=== PATIENT | male | born 1960 | race Caucasian/White ===

== ENCOUNTER 2018-03-05 07:21 | Emergency (ER) | payer BC ==
[2018-03-05 07:53] VITALS: BP 137/80
--- NOTE | 2018-03-05 08:15 | UC ---
Throat Pain/Nasal Cullen HPI - HPI Summary HPI Summary: Patient presents emergency Department with 2 weeks of progressive sinus congestion cough. Patient states he's been taking Sudafed and Tylenol without relief. Patient states now is got right facial pain. Mild right ear pain. Patient with postnasal drip. Patient states he is coughing up the same green stuff is coming out of his nose. No body aches. No nausea vomiting. No document a fever. Patient's been eating and drinking okay. Patient states is just not getting better so he decided to come. Patient does not smoke. Patient 's medications were reviewed this visit - History of Current Complaint Chief Complaint: UCRespiratory Stated Complaint: SINUSES Time Seen by Provider: 03/05/18 08:11 Hx Obtained From: Patient Pain Intensity: 0 - Allergies/Home Medications Allergies/Adverse Reactions: Allergies Allergy/AdvReac Type Severity Reaction Status Date / Time No Known Allergies Allergy Verified 03/05/18 07:42 Home Medications: Home Medications Cholesterol Med, ? Name 1 tab PO DAILY 03/05/18 [History] Omeprazole CAP* [Prilosec CAP* 20 MG] 40 mg PO DAILY 03/05/18 [History Confirmed 03/05/18] Pseudoephedrine HCL ER TAB* [Sudafed 12 Hour*] 1 tab PO BID PRN 03/05/18 [ History Confirmed 03/05/18] PMH/Surg Hx/FS Hx/Imm Hx Previously Healthy: Yes - Surgical History Surgical History: Yes Surgery Procedure, Year, and Place: Shoulder surgery (left)- 3 years ago - Family History Known Family History: Positive: Other - non contributory - Social History Occupation: Employed Full-time Lives: With Family Alcohol Use: Occasionally Substance Use Type: None Smoking Status (MU): Former Smoker When Did the Patient Quit Smoking/Using Tobacco: 2016 Review of Systems Constitutional: Fatigue ENT: Sore Throat, Nasal Discharge, Sinus Congestion, Sinus Pain/Tenderness All Other Systems Reviewed And Are Negative: Yes Physical Exam - Summary Physical Exam Summary: Vital Signs Reviewed: Yes A+Ox3, no distress Eyes: Conjunctiva Clear, GODWIN. EOM intact and full ENT: Hearing grossly normal TM x 2 clear, turbinates inflammed and boggy, thick pnd, max sinus TTP mmoist, uvula midline, no exudate, no erythema Neck: Positive: Supple Respiratory: Positive: No respiratory distress, No accessory muscle use + CTA throughout no w/r Cardiovascular: RRR nl s1, s2 no m/r CBT <2 sec abd soft + BS nt/nd no guarding, no distension Musculoskeletal Exam: ZAMARRIPA x 4 without difficulty Strength Intact, ROM Intact Neurological: Positive: Alert, + sensation throughout Psychological: Positive: Normal Response To Family Skin: Positive: no rash, no ecchymosis Triage Information Reviewed: Yes Vital Signs: Initial Vital Signs Pulse 57 03/05/18 07:45 Resp 16 03/05/18 07:45 BP 137/80 03/05/18 07:45 Pulse Ox 97 03/05/18 07:45 Throat Pain/Nasal Course/Dx - Course Course Of Treatment: Pt with 2 weeks progessive nasal congestion, pnd. Pt now with sinus pressure. vss. exam c/w sinusitis. abx. hydrate. motrin/apap. flonase. return rpecaution. secretion precuation - Differential Dx/Diagnosis Provider Diagnoses: sinusitis Discharge - Sign-Out/Discharge Documenting (check all that apply): Patient Departure All imaging exams completed and their final reports reviewed: No Studies - Discharge Plan Condition: Stable Disposition: HOME Prescriptions: Amoxicillin PO (*) [Amoxicillin 500 MG CAP*] 500 mg PO Q12H #20 cap Fluticasone NASAL SPRAY 50MCG* [Flonase NASAL SPRAY 50MCG*] 2 spray BOTH NARES DAILY #1 btl Patient Education Materials: Rhinosinusitis (ED) Referrals: Edward Humphreys PA [Primary Care Provider] - Additional Instructions: - Stay well hydrated. Drink plenty of non-alcoholic, non-caffinated beverages. - Alternate ibuprofen (Advil, Motrin) 600mg and Tylenol every 3 hours for pain or fever. Take with food. Do NOT take for more than 4-5 days. - These infections are spread by secretions - do NOT share eating or drinking utensils - clean items you share with other people such as cell phones, computer mouse, TV remote, computer tablets,etc. Once you have been antibiotics for 2 days, change your toothbrush and your pillowcase. - get plenty of restful sleep - humidify the air in the room where you sleep - boil water, run a hot steam shower, vaporizer, cups of water by heat register - okay to take over the counter decongestant and cough medication - use nasal spray as prescribed - contact your doctor or return with questions or concerns - Billing Disposition and Condition Condition: STABLE Disposition: Home
== END 2018-03-05 08:26 | disposition home or self-care (01) ==
LOC: UCCORT 07:21
DX: J32.9 Chronic sinusitis, unspecified (principal); Z87.891 Personal history of nicotine dependence
CPT/HCPCS: 99212; G0463

== ENCOUNTER 2018-10-16 13:28 | Emergency (ER) | payer BC ==
--- NOTE | 2018-10-16 13:56 | UC ---
Throat Pain/Nasal Cullen HPI - HPI Summary HPI Summary: 58 y/o male presents to the urgent care c/o sinus congestion, pain , REDDY, B?L ear pressure and green nasal discharge for the past 5 week. Symptoms have worsen this past week. He feels mild dry cough and chest feels congested. Moderate green PND. Yesterday he developed subjective fever at home. He has take OTC medication to alleviate symptoms. RT ear pressure, mild pain and decrease hearing. Pain is 4/10. Pt denies dizziness, SOB, chest pain, abdominal pain, N/V/D. - History of Current Complaint Stated Complaint: SINUS COMPLAINT Time Seen by Provider: 10/16/18 13:55 Hx Obtained From: Patient Onset/Duration: Gradual Onset, Lasting Weeks - 5 weeks, Still Present, Worse Since - 1 week Severity: Moderate Pain Intensity: 4 - sinus pain Pain Scale Used: 0-10 Numeric Cough: Nonproductive - dry Associated Signs & Symptoms: Positive: Sinus Discomfort, Nasal Discharge, Fever - subjective fever at home yesterday. Negative: Wheezing - Epiglottits Risk Factors Epiglottis Risk Factors: Negative - Allergies/Home Medications Allergies/Adverse Reactions: Allergies Allergy/AdvReac Type Severity Reaction Status Date / Time No Known Allergies Allergy Verified 10/16/18 14:02 PMH/Surg Hx/FS Hx/Imm Hx Previously Healthy: Yes GI/ History: Gastroesophageal Reflux - Surgical History Surgical History: Yes Surgery Procedure, Year, and Place: Shoulder surgery (left)- 3 years ago - Family History Known Family History: Positive: None - Pt deneis FMHX - Social History Occupation: Employed Full-time Lives: With Family Alcohol Use: Occasionally Substance Use Type: None Smoking Status (MU): Former Smoker When Did the Patient Quit Smoking/Using Tobacco: 2016 Review of Systems All Other Systems Reviewed And Are Negative: Yes Constitutional: Positive: Fever - subjective at home yesterday, Chills Skin: Positive: Negative Eyes: Positive: Negative ENT: Positive: Ear Ache - B/L ear pressure, Nasal Discharge - green, Sinus Congestion, Sinus Pain/Tenderness, Other - moderate gren PND Respiratory: Positive: Cough - dry Cardiovascular: Positive: Negative Gastrointestinal: Positive: Negative Genitourinary: Positive: Negative Motor: Positive: Negative Neurovascular: Positive: Negative Musculoskeletal: Positive: Myalgia Neurological: Positive: Headache Psychological: Positive: Negative Is Patient Immunocompromised?: No Physical Exam - Summary Physical Exam Summary: Vitals: reviewed General: Well developed, well-nourished male patient with NAD. Head and face: Normocephalic and atraumatic, Positive tenderness over the frontal and maxillary sinuses.. Eyes: PERRLA, EOMI x 2. Normal conjunctiva. No eye discharge. ENT: RT external ear canal impacted w/ cerumen unable to visualize TM, LF external ear canal clear, LF TM WNL. Nose: edematous and erythematous nasal mucosa with with yellowish discharge and erythematous mucosa. Pharynx with erythema, no exudate. Moderate green PND Neck: Supple, no JVD, no carotid bruits and no lymphadenopathy. Lungs: clear, no rales, no rhonchi, no wheezes. CVS: RRR, S1 and S2 present no murmurs or gallops appreciated. Abdomen: soft nontender with positive bowel sounds. Extremities: no edema noted. Neuro: WNL. Skin: warm and dry Triage Information Reviewed: Yes Throat Pain/Nasal Course/Dx - Course Course Of Treatment: 58 y/o male presents to the urgent care c/o sinus congestion, pain , REDDY, B?L ear pressure and green nasal discharge for the past 5 week. Symptoms have worsen this past week. He feels mild dry cough and chest feels congested. Moderate green PND. Yesterday he developed subjective fever at home. He has take OTC medication to alleviate symptoms. RT ear pressure, mild pain and decrease hearing. Pain is 4/10. Pt denies dizziness, SOB, chest pain, abdominal pain, N/V/D. Hx obtained. Pt with 5 weeks of symptoms getting worse. Pt w/ acute bacterial sinusitis and RT external ear canal impacted w/ cerumen unable to visualize TM on examination. RT ear irrigation ordered and performed by nurse. Moderated cerumen removed even w/ ear speculum, but cerumen still present. Pt Rx Amoxicillin PO and flonase nasal spray and Debrox otic drops to allevite symptoms. Also Advised to take Ibuprofen PO to alleviate symptoms. Discharge instructions explained to Pt. Advised to Return to the clinic or PCP if symptoms do not improve.Pt's BP is elevated today advised to decrease salt in diet, monitor BP and f/u with PCP for further management. Pt understood and agreed with plan of care. - Differential Dx/Diagnosis Differential Diagnosis/HQI/PQRI: Laryngitis, Otitis Media, Pharyngitis, Sinusitis, Tonsillitis, URI Provider Diagnosis: Acute bacterial sinusitis, Impacted cerumen of right ear, Elevated BP without diagnosis of hypertension Discharge - Sign-Out/Discharge Documenting (check all that apply): Patient Departure - D/C home All imaging exams completed and their final reports reviewed: No Studies - Discharge Plan Condition: Stable Disposition: HOME Prescriptions: Amoxicillin PO (*) [Amoxicillin 875 MG (*)] 875 mg PO BID #20 tab Carbamide Peroxide 6.5% OTIC* [DEBROX 6.5% Otic*] 5 drop RIGHT EAR BID #1 bottle Fluticasone NASAL SPRAY 50MCG* [Flonase NASAL SPRAY 50MCG*] 2 spray BOTH NARES DAILY #1 btl Patient Education Materials: Sinusitis (ED), Cerumen Impaction (ED) Referrals: Edward Humphreys PA [Primary Care Provider] - 3 Days Additional Instructions: 1- Please increase fluid intake and rest. take full course of antibiotic to avoid resistance 2-Use Flonase as directed to help drain fluid. Also buy saline drops to clear sinuses 3- Please apply Debrox otic drops as directed below to softe the cerumen taht still present in the Rt ear canal. 4-Return to the clinic or PCP in 3 days if symptoms do not improve for further management and treatment. 5-Your BP is elevated today. please decrease salt in your diet, monitor BP and if it continues to be elevated please f/u with your PCP for further management. - Billing Disposition and Condition Condition: STABLE Disposition: Home
[2018-10-16 14:03] VITALS: BP 147/90
== END 2018-10-16 14:46 | disposition home or self-care (01) ==
LOC: UCCORT 13:28
DX: J01.90 Acute sinusitis, unspecified (principal); B96.89 Other specified bacterial agents as the cause of diseases classified elsewhere; H61.21 Impacted cerumen, right ear; R03.0 Elevated blood-pressure reading, without diagnosis of hypertension; Z87.891 Personal history of nicotine dependence
CPT/HCPCS: 69210; 99213; G0463